=== PATIENT | female | born 1990 | race Caucasian/White ===

== ENCOUNTER → 2019-12-03 09:20 | Outpatient (CLI) | payer MEDICAID, SELFPAY ==
[2019-11-12 15:55] VITALS: BMI 23.3
--- NOTE | 2019-12-03 09:21 | MRI_ITS ---
STUDY: BILATERAL BREAST MR WITHOUT AND WITH CONTRAST REASON FOR EXAM: Female, 29 years old. Infection after prophylactic mastectomy. TECHNIQUE: Multi-sequence multi-echo imaging of both breasts was performed with a dedicated breast coil. T1-weighted and T2-weighted images were performed before the administration of contrast. T1-weighted images were also performed after the administration of 14 ml of Dotarem contrast IV without complications. COMPARISON: FINDINGS: Changes of bilateral mastectomy are present. There are no areas of enhancement present. There are no enlarged or abnormal lymph nodes. There is no abnormality in the visualized regions of the chest or liver. MRI/Breast Bilateral W/O and W IMPRESSION: Bilateral mastectomy changes. No other abnormality. CATEGORY: BIRADS Category 2: Benign. A letter regarding these results will be sent to the patient by the facility within 30 days. Electronically Signed: Shawn Owen MD at 16:21 EST , Service support ,
== END ==
PROVIDERS: Referring Provider Surgery; Visit Provider Surgery
DX: F40.298 Other specified phobia (principal); Z15.01 Genetic susceptibility to malignant neoplasm of breast; Z80.3 Family history of malignant neoplasm of breast; Z90.13 Acquired absence of bilateral breasts and nipples; Z98.86 Personal history of breast implant removal
CPT/HCPCS: 77049; A9575; A4216; C8908